=== PATIENT | female | born 1985 | race Caucasian/White ===

== ENCOUNTER → 2021-01-10 | Day surgery (SDC) | payer OTHER ==
[~2021-01-10] MED LIST: BACTRIM DS TAB1 EACH PO; BUPROPION XL300 MG PO; DIFLUCAN 100MG100 MG PO; IBUPROFEN800 MG PO; KEFLEX250 MG PO; KETOROLAC TROME10 MG PO; PROBIOTIC1 EAC1 PO; SINEQUAN50 MG PO; VIVITROL380 MG IJ
[2021-01-10 09:53] LABS: HCG (URINE) SCREEN NEGATIVE (NEGATIVE)
== END | disposition home or self-care (01) ==
LOC: FAS 09:30
PROVIDERS: Anesthesiology
DX: K64.1 Second degree hemorrhoids (principal); K64.4 Residual hemorrhoidal skin tags; K60.3 Anal fistula; F41.9 Anxiety disorder, unspecified; F90.2 Attention-deficit hyperactivity disorder, combined type; Z20.822 Contact with and (suspected) exposure to COVID-19; Z90.49 Acquired absence of other specified parts of digestive tract; Z98.890 Other specified postprocedural states; Z87.891 Personal history of nicotine dependence; Z82.49 Family history of ischemic heart disease and other diseases of the circulatory system
CPT/HCPCS: 84703; J1100; J1885; J2704; J7120

== ENCOUNTER 2021-07-02 07:04 | Emergency (ER) | payer OTHER ==
[2021-07-02] MEDS ORDERED: TESSALON PERLE100 M1 PO (09:15)
[2021-07-02] MEDS ORDERED: PHENERGAN6.25 MG/5 PO (10:14)
== END 2021-07-02 11:00 | disposition home or self-care (01) ==
LOC: FER 07:04
DX: U07.1 COVID-19 (principal); F17.290 Nicotine dependence, other tobacco product, uncomplicated; Z90.49 Acquired absence of other specified parts of digestive tract; Z98.890 Other specified postprocedural states; Z23 Encounter for immunization
CPT/HCPCS: J7120; M0243; Q0244; U0002